=== PATIENT | female | born 1960 | race Two or more races ===

== ENCOUNTER 2021-08-20 20:45 | Observation (INO) | payer OTHER ==
[~2021-08-20] VITALS: Ht 162.6 cm; Wt 65.8 kg
[~2021-08-20 20:45] MED LIST: GLUCOVANCE 5-51 EACH PO; GLYXAMBI 10 MG1 EACH PO
[2021-08-20 22:14] LABS: HEMOGLOBIN 12.3 gm/dl (12.3-15.3); RED BLOOD COUNT 4.23 M/UL (4.00-5.10); WHITE BLOOD COUNT 9.2 K/UL (4.5-11.0)
[2021-08-20 22:33] LABS: BUN/CREATININE RATIO 25 (0-10)
--- NOTE | 2021-08-21 06:29 | NUR ---
0330- ON ARRIVAL TO FLOOR OVERAL DID A VISUAL ASSESSMENT OF PATIENT. PATIENT IS CALM, VITALS WNL, APPEARS TO BE WELL NOURISHED. HER COLOR IS APPROPRIATE FOR RACE. SHE SPEAKS VERY LITTLE CITIZ[place] OF [place]. ATTEMPTED TO USE BLACK DUAL CAGE/VAULT SUPERVISOR PHONE ALONG WITH ER NURSE CASH READ AND WASN'T SUCCESSFUL DUE TO OTHER [facility] NOT BEING ABLE TO HEAR US. MULTIPLE ATTEMPTS MADE. 0410- CALLED TO ATTEMPT TO SPEAK WITH EITHER A [place] OR [place] CAGE/VAULT SUPERVISOR, CALL WAS DISCONNECTED AFTER RECEIVING [place] CAGE/VAULT SUPERVISOR NUMBER [id number]. WAS UNABLE TO SPEAK WITH AN CAGE/VAULT SUPERVISOR. 0415- CALLED TO ONCE AGAIN ATTEMPT TO SPEAK WITH AN CAGE/VAULT SUPERVISOR FOR THE ABOVE LANGUAGE, HEARD CONNECTING TO [place] CAGE/VAULT SUPERVISOR #[id number], ONCE AGAIN CALL DISCONNECTED. WAS UNABLE TO SPEAK WITH AN CAGE/VAULT SUPERVISOR. 0420- PAPER FOLDING MACHINE OPERATOR CALLED , SCAMMON NOTIFIED THE OPERATORS TRYING TO ACCESS AN CAGE/VAULT SUPERVISOR THAT WE HAVE BEEN HUNG UP ON THE PAST TWO ATTEMPTS. THE END RESULT AFTER HOLDING FOR 20 MINUTES WAS "WE HAVE EXHAUSTED ALL RESOURCES AND ARE UNABLE TO GET A [place] CAGE/VAULT SUPERVISOR AT THIS TIME." 0441- CALLED [phone] THEY STATED "I WILL HAVE TO CALL YOU BACK." A WOMAN NAMED ELIAS CALLED ME BACK AND GAVE ME ANOTHER NUMBER TO CALL ACCESS CODE [id number]. 0449- CALLED , GAVE ACCESS CODE [id number] AFTER GIVING THE INFORMATION NEEDED. WAS TOLD AT 0507 "NO CAGE/VAULT SUPERVISOR IS AVAILABLE." 0511- CALLED USING [employer] AND AGAIN WAS UNSUCCESSFUL AT ACCESS OF CAGE/VAULT SUPERVISOR. "NO CAGE/VAULT SUPERVISOR IS AVAILABLE AT THIS TIME, YOU MAY HAVE TO TRY AGAIN LATER." 0538 - SON-IN-LAW ARRIVES IN ROOM. HE SPEAKS CITIZEN OF [place] FAIRLY WELL. HE IS NOT A GOOD HISTORIAN FOR THE PATIENT. HE DOESN'T KNOW ANY OF HER MEDICAL HISTORY. HE IS AWARE THAT WE ARE TRYING TO GET IN TOUCH WITH AN CAGE/VAULT SUPERVISOR. 0540- SCAMMON CALLED [facility]ESS [facility]ENTER. 0550- SCAMMON CALLED [facility] IN ER TO SEE IF SHE HAS EVER ENCOUNTERED THIS TYPE OF PROBLEM SHE STATED "NO." PAPER FOLDING MACHINE OPERATOR AND MELISSA KEY CNO ARE AWARE OF THE SITUATION AND HAVE BEEN UPDATED THROUGHOUT THE PROCESS OF TRYING TO OBTAIN A CAGE/VAULT SUPERVISOR.
[2021-08-21] MEDS ORDERED: JANUVIA50 MG PO (10:24)
[2021-08-21] MEDS ORDERED: ALLERGY RELIEF180 MG PO (10:25)
[2021-08-21] MEDS ORDERED: AZELASTINE HCL6 ML OP (10:25)
[2021-08-21] MEDS ORDERED: HYDROCODON-ACE1 EAC4 PO (13:31)
[2021-08-21] MEDS ORDERED: IBUPROFEN600 MG PO (13:33)
== END 2021-08-21 21:09 | disposition home or self-care (01) ==
LOC: ER1 20:45 → CDU 08-21 00:23 → M/S 08-21 00:23
PROVIDERS: Emergency Medicine; ADMIT Surgery
DX: K35.32 Acute appendicitis with perforation, localized peritonitis, and gangrene, without abscess (principal); E11.9 Type 2 diabetes mellitus without complications; K21.9 Gastro-esophageal reflux disease without esophagitis; I10 Essential (primary) hypertension; E78.5 Hyperlipidemia, unspecified; M19.90 Unspecified osteoarthritis, unspecified site; Z79.84 Long term (current) use of oral hypoglycemic drugs; Z79.899 Other long term (current) drug therapy; Z20.822 Contact with and (suspected) exposure to COVID-19
CPT/HCPCS: 80053; 81001; 82962; 83690; 84703; 85025; 96374; 96375; 96376; 99285; G0378; J1100; J1170; J1885; J2001; J2270; J2405; J2543; J2550; J2704; J2710; J3010; J7070; J7120; Q9967; U0002

== ENCOUNTER 2021-08-25 07:30 | Emergency (ER) | payer OTHER ==
[~2021-08-25 07:30] MED LIST changes: +ALLERGY RELIEF180 MG PO; +AZELASTINE HCL6 ML OP; +HYDROCODON-ACE1 EAC4 PO; +IBUPROFEN600 MG PO; +JANUVIA50 MG PO
[2021-08-25 08:51] LABS: HEMOGLOBIN 12.9 gm/dl (12.3-15.3); RED BLOOD COUNT 4.46 M/UL (4.00-5.10); WHITE BLOOD COUNT 5.9 K/UL (4.5-11.0)
[2021-08-25 09:24] LABS: BUN/CREATININE RATIO 20 (0-10)
[2021-08-25] MEDS ORDERED: MIRALAX17 GM PO (11:14)
[2021-08-25] MEDS ORDERED: DULCOLAX STOOL100 MG PO (11:14)
== END 2021-08-25 11:43 | disposition home or self-care (01) ==
LOC: ER1 07:30
PROVIDERS: Student in an Organized Health Care Education/Training Program
DX: K59.00 Constipation, unspecified (principal); E11.9 Type 2 diabetes mellitus without complications; I10 Essential (primary) hypertension
CPT/HCPCS: 80053; 81001; 82550; 82553; 83690; 83874; 84484; 85025; 85610; 99284; Q9967

== ENCOUNTER → 2021-12-09 | Day surgery (SDC) | payer OTHER ==
[~2021-12-09] MED LIST changes: +DULCOLAX STOOL100 MG PO; +MIRALAX17 GM PO
== END | disposition home or self-care (01) ==
LOC: OR 05:50
DX: Z12.11 Encounter for screening for malignant neoplasm of colon (principal); D12.4 Benign neoplasm of descending colon; U07.1 COVID-19; Z79.1 Long term (current) use of non-steroidal anti-inflammatories (NSAID); Z79.899 Other long term (current) drug therapy; Z90.49 Acquired absence of other specified parts of digestive tract
CPT/HCPCS: 82962; J2704; J3010; J7040; U0002